=== PATIENT | female | born 1975 | race Caucasian/White ===

== ENCOUNTER 2022-03-23 09:57 | Emergency (ER) | payer MEDICARE ==
[~2022-03-23] VITALS: Ht 170.2 cm; Wt 70.5 kg
[~2022-03-23 09:57] MED LIST: DULO60CA65 PO; GABA-532 PO; HYDR-3972 PO; LISI10TA27 PO; METO-395 PO; MULT-1085 PO; PANT40TA39 PO; TIZA-205 PO
[2022-03-23 10:49] LABS: BASOPHILS % (AUTO) 0.6 % (0-1); EOSINOPHILS # (AUTO) 0.1 X10'3 (0-0.9); EOSINOPHILS % (AUTO) 1.2 % (0-6); HEMATOCRIT 39.1 % (35.0-45.0); HEMOGLOBIN 13.2 g/dl (12.0-16.0); LYMPHOCYTES # (AUTO) 0.7 X10'3 (1.1-4.8); LYMPHOCYTES % (AUTO) 10.1 % (21-51); MEAN CORPUSCULAR HEMOGLOBIN 33.3 PG (27.0-31.0); MEAN CORPUSCULAR HGB CONC 33.6 g/dL (33.0-36.5); MEAN CORPUSCULAR VOLUME 98.8 FL (78-98); MEAN PLATELET VOLUME 9.3 FL (7.4-10.4); MONOCYTES # (AUTO) 0.3 X10'3 (0-0.9); NEUTROPHILS # (AUTO) 5.3 X10'3 (1.8-7.7); NEUTROPHILS % (AUTO) 83.1 % (42-75); PLATELET COUNT 136 X10'3 (140-440); RED BLOOD COUNT 3.96 X10'6 (4.20-5.60); RED CELL DISTRIBUTION WIDTH 18.5 % (11.5-14.5); WHITE BLOOD COUNT 6.4 X10'3 (4.5-11.0)
[2022-03-23 11:03] LABS: ALANINE AMINOTRANSFERASE 253 U/L (12-78); ALBUMIN 3.5 G/DL (3.4-5.0); ALBUMIN/GLOBULIN RATIO 0.8 (1.1-1.5); ALKALINE PHOSPHATASE 110 IU/L (46-116); ANION GAP 10 (8-16); ASPARTATE AMINO TRANSFERASE 498 U/L (10-37); BILIRUBIN,TOTAL 1.7 MG/DL (0.1-1.0); BLOOD UREA NITROGEN 16 MG/DL (7-18); BUN/CREATININE RATIO 15.4 (6.6-38.0); CALCIUM 9.3 MG/DL (8.5-10.1); CHLORIDE 94 MMOL/L (99-107); CREATININE 1.04 MG/DL (0.40-0.90); GLUCOSE 99 MG/DL (70-104); POTASSIUM 3.6 MMOL/L (3.5-5.1); SODIUM 134 MMOL/L (135-145); TOTAL PROTEIN 7.7 G/DL (6.4-8.2); eGFR 57 ML/MIN
[2022-03-23] MEDS ORDERED: normal saline 1000ml 1,000 ML IV ONE (11:50)
[2022-03-23 12:11] LABS: ETHANOL < 0.010 GM/DL (0.0-0.010)
[2022-03-23] MEDS ORDERED: TETanus/Pertussis (Acell)/Diphther VAC/PF (Tdap-Adult) 0.5ml syringe IMVAC ONE (12:20)
[2022-03-23] MEDS ORDERED: LIDOcaine 1% w/EPI 1:100,000 30ml vial (MDV) IJ ONE (12:20)
[2022-03-23 13:19] LABS: MAGNESIUM 1.4 MG/DL (1.5-2.4)
[2022-03-23 13:20] LABS: CLARITY,URINE CLEAR (Clear); COLOR,URINE YELLOW (Yellow); GLUCOSE, URINE NEGATIVE (Neg); KETONES,URINE NEGATIVE (Neg); LEUKOCYTE ESTERASE ,URINE NEGATIVE (Neg); NITRITES, URINE NEGATIVE (Neg); OCCULT BLOOD,URINE NEGATIVE (Neg); PH,URINE 7.5 (4.8-8.0); PROTEIN,URINE NEGATIVE (Neg)
[2022-03-23 13:24] LABS: UA COLLECTION TYPE CLN CATCH MIDSTREAM
--- NOTE | 2022-03-23 13:31 | NUR ---
RELIEVING RN FOR LUNCH, PT IS RESTING QUIETLY ON GURNEY, SAID PROVIDER PLACE SANDRO TO BACK OF HEAD, PT ABLE TO ROSELIA ORTHO BP WELL, C/O SLIGHT DIZZINESS WHEN STANDING, PT WAS ABLE TO STAND WITHOUT ASSIST
[2022-03-23 13:32] LABS: URINE AMPHETAMINE SCREEN NEGATIVE (Neg); URINE BARBITUATE SCREEN NEGATIVE (Neg); URINE BENZODIAZEPINES SCREEN NEGATIVE (Neg); URINE CANNABINOID SCREEN POSITIVE (Neg); URINE COCAINE SCREEN NEGATIVE (Neg); URINE METHADONE SCREEN NEGATIVE (Neg); URINE OPIATE SCREEN POSITIVE (Neg); URINE PHENCYCLIDINE SCREEN NEGATIVE (Neg)
[2022-03-23] MEDS ORDERED: CYCL-1 PO ×2 (13:47)
[2022-03-23 14:13] VITALS: BP 100/79
== END 2022-03-23 14:16 | disposition home or self-care (01) ==
LOC: ER 09:57
DX: S01.01XA Laceration without foreign body of scalp, initial encounter (principal); G43.909 Migraine, unspecified, not intractable, without status migrainosus; M54.2 Cervicalgia; Z88.2 Allergy status to sulfonamides; Z79.899 Other long term (current) drug therapy; W18.39XA Other fall on same level, initial encounter; Y93.89 Activity, other specified; Y92.89 Other specified places as the place of occurrence of the external cause; Y99.8 Other external cause status; Z79.1 Long term (current) use of non-steroidal anti-inflammatories (NSAID)
CPT/HCPCS: 12002; 36415; 70450; 71045; 80053; 80305; 80320; 81003; 83735; 83880; 84484; 85025; 90471; 90715; 93005; 96360; 99285; J7030

== ENCOUNTER 2022-03-27 12:53 | Emergency (ER) | payer MEDICARE ==
[~2022-03-27] VITALS: Ht 170.2 cm; Wt 70.5 kg
[~2022-03-27 12:53] MED LIST changes: +CYCL-1 PO
--- NOTE | 2022-03-27 13:53 | NUR ---
pt called for an update, will call back later to check in.
[2022-03-27] MEDS ORDERED: normal saline 1000ML IV soln IVB ONE (14:30)
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
[2022-03-27 14:39] LABS: BASOPHILS % (AUTO) 0.4 % (0-1); EOSINOPHILS % (AUTO) 0.6 % (0-6); HEMATOCRIT 33.7 % (35.0-45.0); HEMOGLOBIN 11.5 g/dl (12.0-16.0); LYMPHOCYTES # (AUTO) 0.7 X10'3 (1.1-4.8); LYMPHOCYTES % (AUTO) 11.9 % (21-51); MEAN CORPUSCULAR HEMOGLOBIN 33.5 PG (27.0-31.0); MEAN CORPUSCULAR HGB CONC 34.1 g/dL (33.0-36.5); MEAN CORPUSCULAR VOLUME 98.3 FL (78-98); MEAN PLATELET VOLUME 8.7 FL (7.4-10.4); MONOCYTES # (AUTO) 0.6 X10'3 (0-0.9); MONOCYTES % (AUTO) 10.3 % (2-12); NEUTROPHILS # (AUTO) 4.5 X10'3 (1.8-7.7); NEUTROPHILS % (AUTO) 76.8 % (42-75); PLATELET COUNT 133 X10'3 (140-440); RED BLOOD COUNT 3.42 X10'6 (4.20-5.60); RED CELL DISTRIBUTION WIDTH 19.1 % (11.5-14.5); WHITE BLOOD COUNT 5.8 X10'3 (4.5-11.0)
[2022-03-27 14:53] LABS: ALANINE AMINOTRANSFERASE 545 U/L (12-78); ALBUMIN 3.6 G/DL (3.4-5.0); ALBUMIN/GLOBULIN RATIO 0.9 (1.1-1.5); ALKALINE PHOSPHATASE 111 IU/L (46-116); ANION GAP 9 (8-16); ASPARTATE AMINO TRANSFERASE 248 U/L (10-37); BILIRUBIN,TOTAL 1.1 MG/DL (0.1-1.0); BLOOD UREA NITROGEN 10 MG/DL (7-18); BUN/CREATININE RATIO 15.9 (6.6-38.0); CALCIUM 9.8 MG/DL (8.5-10.1); CHLORIDE 97 MMOL/L (99-107); CREATININE 0.63 MG/DL (0.40-0.90); GLUCOSE 119 MG/DL (70-104); POTASSIUM 3.6 MMOL/L (3.5-5.1); SODIUM 137 MMOL/L (135-145); TOTAL PROTEIN 7.7 G/DL (6.4-8.2); eGFR > 90 ML/MIN
[2022-03-27 14:58] LABS: ETHANOL < 0.010 GM/DL (0.0-0.010)
[2022-03-27 14:58] LABS: URINE HCG NEGATIVE (NEG)
[2022-03-27 15:01] LABS: CLARITY,URINE CLEAR (Clear); COLOR,URINE YELLOW (Yellow); GLUCOSE, URINE NEGATIVE (Neg); KETONES,URINE NEGATIVE (Neg); LEUKOCYTE ESTERASE ,URINE NEGATIVE (Neg); NITRITES, URINE NEGATIVE (Neg); OCCULT BLOOD,URINE NEGATIVE (Neg); PH,URINE 5.5 (4.8-8.0); PROTEIN,URINE NEGATIVE (Neg); UROBILINOGEN,URINE 0.2 E.U/dL (0.2-1.0)
[2022-03-27 15:02] LABS: ANISOCYTOSIS 2+; PLATELET ESTIMATE DECREASED
[2022-03-27 15:03] LABS: UA COLLECTION TYPE CLN CATCH MIDSTREAM
[2022-03-27 15:04] LABS: URINE AMPHETAMINE SCREEN NEGATIVE (Neg); URINE BARBITUATE SCREEN NEGATIVE (Neg); URINE BENZODIAZEPINES SCREEN NEGATIVE (Neg); URINE CANNABINOID SCREEN POSITIVE (Neg); URINE COCAINE SCREEN NEGATIVE (Neg); URINE METHADONE SCREEN NEGATIVE (Neg); URINE OPIATE SCREEN POSITIVE (Neg); URINE PHENCYCLIDINE SCREEN NEGATIVE (Neg)
[2022-03-27] MEDS ORDERED: thiamine 100mg/ml 2ml inj. IM ONE (15:40)
--- NOTE | 2022-03-27 17:39 | NUR ---
PACKET FAXED TO [facility]
--- NOTE | 2022-03-27 18:05 | NUR ---
[facility] IN ROOM
[2022-03-27] MEDS ORDERED: GABA300C PO (22:25)
[2022-03-27] MEDS ORDERED: CYCL-394 PO (22:27)
[2022-03-27] MEDS ORDERED: pantoprazole 40mg Tablet.DR PO ONE (23:00)
[2022-03-27] MEDS ORDERED: gabapentin 300mg capsule PO ONE (23:05)
[2022-03-27] MEDS: gabapentin 300mg capsule PO SCH (23:20)
[2022-03-27] MEDS: HYDROcodone/acetaminophen 10/325mg tab PO PRN (23:21)
--- NOTE | 2022-03-28 07:45 | NUR ---
Pt brought to EROF from main ER. Pt placed in bed 21 and went to sleep. Report received from RN.
[2022-03-28] MEDS: pantoprazole 40mg Tablet.DR PO SCH ×2 (08:43→20:46)
[2022-03-28] MEDS: multivitamins, therapeutics tablet PO SCH (08:43)
[2022-03-28] MEDS: gabapentin 300mg capsule PO SCH ×3 (08:43→21:41)
[2022-03-28] MEDS: duloxetine 30mg CAPSULE.DR PO SCH (08:43)
[2022-03-28] MEDS: HYDROcodone/acetaminophen 10/325mg tab PO PRN ×2 (09:05→15:31)
--- NOTE | 2022-03-28 09:15 | NUR ---
Pt woke and took AM meds w/o issue. Pt ate part of breakfast and used bathroom.
--- NOTE | 2022-03-28 09:35 | NUR ---
Farooq GOODWIN, evaluating patient. No distress observed. Continue to monitor.
--- NOTE | 2022-03-28 10:05 | NUR ---
Pt received [place] prn with good effect, and spoke with [facility] clinician. Pt is cooperative and tired.
--- NOTE | 2022-03-28 11:22 | NUR ---
Patient's parents visiting patient. No distress observed. Continue to monitor.
--- NOTE | 2022-03-28 13:05 | NUR ---
Pt awake for lunch and eating well. Pt remains quiet, cooperative and pleasant when asking to get needs met.
--- NOTE | 2022-03-28 15:53 | NUR ---
Pt [place] order changed to Q8 hrs. Pt given [place] prn along with Neurontin. Pt went to sleep. Pt on 5150 hold for GD.
--- NOTE | 2022-03-28 17:29 | NUR ---
Pt in bed visiting with .
--- NOTE | 2022-03-28 19:00 | NUR ---
Patient in the restroom brushing her teeth.
[2022-03-28] MEDS: metoprolol succinate 25mg (24-HOUR) SR. Tablet PO SCH (20:46)
--- NOTE | 2022-03-28 21:00 | NUR ---
Patient pleasant and cooperative with care; compliant with medication. Dr. Talavera agreed to have gabapentin order changed to TID instead of Q8h. Patient denies SI, HI, A/VH this shift. Her liz were reported to be weeping during the day from the R side of wound; at this time a scab has formed over some of the liz.
--- NOTE | 2022-03-29 | NUR ---
Patient laying in bed and appears to be sleeping; no apparent distress. Even non labored respirations.
--- NOTE | 2022-03-29 03:07 | NUR ---
Patient sleeping; no apparent distress. Even non labored respirations and self repositioning.
--- NOTE | 2022-03-29 05:10 | NUR ---
Patient sleeping; no apparent distress. Even non labored respirations and self repositioning.
[2022-03-29] MEDS: multivitamins, therapeutics tablet PO SCH (08:03)
[2022-03-29] MEDS: duloxetine 30mg CAPSULE.DR PO SCH (08:03)
[2022-03-29] MEDS: pantoprazole 40mg Tablet.DR PO SCH ×2 (08:03→20:06)
[2022-03-29] MEDS: gabapentin 300mg capsule PO SCH ×3 (08:03→20:06)
--- NOTE | 2022-03-29 08:13 | NUR ---
Patient is pleasant and cooperative with care; compliant with medication. Denies SI, HI, A/VH; appears depressed. She is up eating breakfast at this time.
--- NOTE | 2022-03-29 08:40 | NUR ---
Patient requesting pain medication. Patient had been withdrawing from Narcotics taking 10/325 mg Connelly Q 4 hours and ran out of meds over 2 weeks ago because she was taking more than prescribed. Patient's prescribing doctor dropped her due to the abuse. Patient's pain medication was changed from Q 4 hours PRN to Q 8 hours PRN yesterday. RN will speak to the doctor to have meds changed tonight to BID prn due to the fact that they will not prescribe Connelly and she will have a difficult time finding a doctor who will prescribe her narcotics since she has a HX of abuse of narcotics. RN gave her 1 Connelly 10/325 mg. Continue to monitor.
[2022-03-29] MEDS: HYDROcodone/acetaminophen 10/325mg tab PO PRN (08:55)
--- NOTE | 2022-03-29 10:31 | NUR ---
Patient continues to sleep supine. No distress observed. Continue to monitor.
--- NOTE | 2022-03-29 12:05 | NUR ---
Patient's parents at bedside. No distress observed. Continue to monitor.
--- NOTE | 2022-03-29 14:05 | NUR ---
Patient reclining in bed and watching T.V. No distress observed. Continue to monitor.
--- NOTE | 2022-03-29 15:48 | NUR ---
Patient is reclining in bed with T.V. on and asleep. No distress observed. Continue to monitor.
--- NOTE | 2022-03-29 17:30 | NUR ---
Patient sleeping. No distress observed. Continue to monitor.
[2022-03-29] MEDS: ibuprofen tablet 400 MG TABLET PO PRN (17:57)
[2022-03-29] MEDS ORDERED: magnesium oxide 400mg tablet PO ONE (18:00)
--- NOTE | 2022-03-29 19:06 | NUR ---
One to one with the patient to assess for depressive symptoms, withdrawals and complete physical assessment. The patient was observed crying and standing at the end of her bed. She stated that her whole body hurt and that she had fibromalgia. She denies problems with ETOH and does not believe she needs substance abuse treatment. She stated that she is concerned about not having norco for her pain and that she has worked with a pain specialist in the past and "nothing has worked" She admits that she feels depressed but not suicidal. She denies that she is having any auditory or visual hallucinations and none were apparent during the assessment.
[2022-03-29] MEDS ORDERED: HYDROcodone/acetaminophen 10/325mg tab PO PRN (20:00)
[2022-03-29] MEDS: metoprolol succinate 25mg (24-HOUR) SR. Tablet PO SCH (20:06)
--- NOTE | 2022-03-29 21:29 | NUR ---
The patient appears to be sleeping
--- NOTE | 2022-03-29 23:00 | NUR ---
The patient appears to be sleeping
--- NOTE | 2022-03-30 00:26 | NUR ---
The patient appears to be sleeping
[2022-03-30] MEDS: ibuprofen tablet 400 MG TABLET PO PRN ×3 (01:54→17:57)
--- NOTE | 2022-03-30 01:59 | NUR ---
Patient up to use the bathroom and complained of pain. Motrin given with food
--- NOTE | 2022-03-30 03:01 | NUR ---
The patient appears to be sleeping
--- NOTE | 2022-03-30 05:01 | NUR ---
The patient appears to be sleeping
--- NOTE | 2022-03-30 07:00 | NUR ---
pt sleeping, resting comfortably
[2022-03-30] MEDS: duloxetine 30mg CAPSULE.DR PO SCH (09:20)
[2022-03-30] MEDS: multivitamins, therapeutics tablet PO SCH (09:20)
[2022-03-30] MEDS: pantoprazole 40mg Tablet.DR PO SCH ×2 (09:20→20:21)
[2022-03-30] MEDS: gabapentin 300mg capsule PO SCH ×3 (09:21→20:21)
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
--- NOTE | 2022-03-30 11:00 | NUR ---
Spoke with product sales representative from [facility]--stated they will follow up tomorrow as they are not accepting the patient today due to the open wound on the back of her head and need patient on the antibiotics at least 24 hours prior to accepting her
--- NOTE | 2022-03-30 13:00 | NUR ---
Motrin given for throbbing at old staple site on back of patient's head, medication helped with the pain. Patient resting comfortably and visiting with her parents who came to her bedside
--- NOTE | 2022-03-30 15:32 | NUR ---
No acute distress, patient resting in bed comfortably watching television
--- NOTE | 2022-03-30 15:43 | NUR ---
Patient's head started to hurt again at wound site, ice pack given as motrin is not due yet to give again
--- NOTE | 2022-03-30 17:18 | NUR ---
Patient resting comfortably watching tv, no acute distress
--- NOTE | 2022-03-30 18:24 | NUR ---
Received patient, report was given from Katelyn BONILLA. Pt sitting quietly in bed watching TV while eatting dinner.
--- NOTE | 2022-03-30 19:47 | NUR ---
Patient lying in bed quietly watching TV.
[2022-03-30] MEDS: DOXYCYCLINE 100MG CAPSULE PO SCH (20:21)
[2022-03-30] MEDS: metoprolol succinate 25mg (24-HOUR) SR. Tablet PO SCH (20:21)
--- NOTE | 2022-03-31 00:11 | NUR ---
Patient up to use the restroom.
[2022-03-31] MEDS: ibuprofen tablet 400 MG TABLET PO PRN ×2 (01:38→09:07)
--- NOTE | 2022-03-31 01:40 | NUR ---
Patient requested Motrin for chronic ongoing backpain. Motrin given . Patient eating crackers and using bathroom will continue to monitor.
--- NOTE | 2022-03-31 03:46 | NUR ---
Patient got up to use restroom. Patient complained of back pain. An ice pack was offered to the pt with good effect. pt now lying on back in bed and appears to be sleeping at this time.
--- NOTE | 2022-03-31 04:58 | NUR ---
Patient lying in bed appears to be sleeping.
--- NOTE | 2022-03-31 05:40 | NUR ---
Patient BP elevated 166/112 R arm, 152/100 left arm, 161/[address] Phillip notified. No new orders.
--- NOTE | 2022-03-31 06:22 | NUR ---
Patient is resting quietly in bed. no s/sx acute distress
[2022-03-31] MEDS: multivitamins, therapeutics tablet PO SCH (09:02)
[2022-03-31] MEDS: gabapentin 300mg capsule PO SCH (09:02)
[2022-03-31] MEDS: duloxetine 30mg CAPSULE.DR PO SCH (09:02)
[2022-03-31] MEDS: DOXYCYCLINE 100MG CAPSULE PO SCH (09:02)
[2022-03-31] MEDS: pantoprazole 40mg Tablet.DR PO SCH (09:02)
--- NOTE | 2022-03-31 09:29 | NUR ---
Patient awakened for breakfast. Appears somewhat fatigued. Uses the restroom and eats independently. Returns to bed and appears asleep at this time.
--- NOTE | 2022-03-31 11:25 | NUR ---
Telephone call placed to patient's to inform him that she will be released at 12:40. He stated that either he or her parents will be picking her up at that time.
[2022-03-31] MEDS ORDERED: DOXY100C43 PO (12:00)
[2022-03-31 12:59] VITALS: BP 146/110
--- NOTE | 2022-03-31 13:40 | NUR ---
Patient's parents here to pickup patient. Wallet and cell phone with call center professional were not found initially. Security had patient's knife and wallet and are bringing to patient at this time. Phone is still missing.
--- NOTE | 2022-03-31 14:37 | NUR ---
PT'S CALLED, STATES THAT HIS DID FIND HER WALLET AND GUZMAN IN HER PURSE; HOWEVER, HER PHONE WAS NOT PRESENT AND NOT AT HOME. STATES THAT HE PERSONALLY PUT THE PT'S iPHONE 7 (BLUE) IN HER PURSE. THE PT WAS USING IT WHILE WAITING FOR ADMISSION AND WAS THEN TAKEN FROM HER BY STAFF MEMBER. PROVIDED THE PHONE'S PASSWORD: [phone] SHOULD IT BE NEEDED.
== END 2022-03-31 14:00 | disposition home or self-care (01) ==
LOC: ER 12:54
DX: F23 Brief psychotic disorder (principal); R74.01 Elevation of levels of liver transaminase levels; F11.90 Opioid use, unspecified, uncomplicated; M54.2 Cervicalgia; R45.1 Restlessness and agitation; G43.909 Migraine, unspecified, not intractable, without status migrainosus; Z86.19 Personal history of other infectious and parasitic diseases; Z72.89 Other problems related to lifestyle; Z88.2 Allergy status to sulfonamides; Z79.899 Other long term (current) drug therapy
CPT/HCPCS: 36415; 72040; 80053; 80305; 80320; 81003; 81025; 82140; 83880; 84443; 84484; 85008; 85025; 93005; 96360; 96361; 96372; 99285; J3411; J7030